=== PATIENT | female | born 1995 ===

== ENCOUNTER 2023-01-24 10:18 | Inpatient (IN) | payer BC ==
[2023-01-24] MEDS ORDERED: Diphenoxylate HCl/Atropine Tablet PO PRN ×2 (10:22)
[2023-01-24] MEDS ORDERED: Acetaminophen 500 MG TAB PO PRN (10:22)
[2023-01-24] MEDS ORDERED: hydrALAZINE 20 MG/ML VIAL SLOW IVP PRN ×2 (10:22→22:25)
[2023-01-24] MEDS ORDERED: fentaNYL 50 mcg/mL 1 mL Vial SLOW IVP PRN (10:22)
[2023-01-24] MEDS ORDERED: HYDROcodone/Acetaminophen 5/325 mg Tablet PO PRN ×4 (10:22→22:25)
[2023-01-24] MEDS ORDERED: Carboprost 250 MCG/ML AMP IM PRN (10:22)
[2023-01-24] MEDS ORDERED: Methylergonovine 0.2 MG/ML VIAL IM PRN ×2 (10:22→22:25)
[2023-01-24] MEDS ORDERED: Docusate 100 MG CAP PO PRN (10:22)
[2023-01-24] MEDS ORDERED: Ondansetron PF 4 MG/2 ML Vial IVP PRN ×3 (10:22→22:25)
[2023-01-24] MEDS ORDERED: Ibuprofen 800 MG TAB PO PRN (10:22)
[2023-01-24] MEDS ORDERED: Promethazine HCl 25 MG/ML VIAL IM PRN ×2 (10:22→15:39)
[2023-01-24] MEDS ORDERED: Lidocaine 1% (PF) 30 ML VIAL SC PRN (10:22)
[2023-01-24] MEDS ORDERED: Misoprostol 200 MCG TAB PR PRN (10:22)
[2023-01-24] MEDS ORDERED: Lactated Ringer's 1,000 ML IV SCH (10:30)
[2023-01-24] MEDS ORDERED: Penicillin G Potassium 5 MILL.UNITS in Sodium Chloride 0.9% 100 ML IVPB SCH (10:30)
[2023-01-24] MEDS ORDERED: Oxytocin 30 units/NS 500 ML 500 ML IV SCH ×4 (10:30→22:30)
[2023-01-24 12:20] LABS: Hematocrit 36.8 % (34.9-44.5); Hemoglobin 12.7 g/dL (12.0-15.5); Mean Corpuscular HGB CONC 34.5 g/dL (32.0-36.0); Mean Corpuscular Hemoglobin 32.2 pg (27.0-33.0); Mean Corpuscular Volume 93.2 fl (81.6-98.3); Mean Platelet Volume 12.9 fl (7.4-10.4); Platelet Count 165 10x3/uL (150-450); RBC Distribution Width 13.2 % (11.5-14.5); Red Blood Cell (RBC) Count 3.95 10x6/uL (3.90-5.03); White Blood Cell (WBC) Count 12.1 10x3/uL (3.5-10.5)
[2023-01-24 12:56] LABS: Syphilis Antibody Nonreactive (Nonreactive); Syphilis Antibody Index 0.04 S/CO (<1.00 Non-Reactive)
[2023-01-24 12:57] LABS: HIV (1/2) Antibody/Antigen Non-Reactive (NonReactive); HIV 1/2 INDEX 0.07 S/CO (<1.00)
[2023-01-24 12:58] LABS: HBSAg Index 0.17 S/CO (0-0.99); Hep B Surf Ag - L&D Non-Reactive S/CO (NonReactive)
[2023-01-24] MEDS ORDERED: fentaNYL/Ropivacaine Epidural 100 ML ONE (14:16)
[2023-01-24 15:20] VITALS: BMI 35.9
[2023-01-24] MEDS ORDERED: ePHEDrine Sulfate 50 MG/10 ML VIAL SLOW IVP PRN (15:39)
[2023-01-24] MEDS ORDERED: Naloxone HCl 0.4 mg/ml Vial IVP PRN ×2 (15:39)
[2023-01-24] MEDS ORDERED: Acetaminophen 325 MG TAB PO PRN (15:39)
[2023-01-24] MEDS ORDERED: Lactated Ringer's 500 ML IV PRN (15:39)
[2023-01-24] MEDS ORDERED: diphenhydrAMINE 50 MG/ML VIAL IVP PRN (15:39)
[2023-01-24] MEDS ORDERED: Moisturizing Cream (Eucerin) 113 GM JAR TOP PRN (15:39)
[2023-01-24] MEDS ORDERED: Communication Order-Pharmacy FS SCH (15:45)
[2023-01-24] MEDS: Penicillin G 2.5 MILL.units 2.5 MILL.UNITS in Premix 1 BAG IVPB SCH ×2 (16:53→20:55)
[2023-01-24] MEDS ORDERED: Famotidine/PF 20 mg/2ml Vial SLOW IVP SCH (21:00)
[2023-01-24] MEDS ORDERED: Boostrix 0.5 ML (Tdap) VIAL (>/=7 yrs of age) IM ONE (22:25)
[2023-01-24] MEDS ORDERED: Milk Of Magnesia 30 ML UDCUP PO PRN (22:25)
[2023-01-24] MEDS ORDERED: Misoprostol 200 MCG TAB VAG PRN (22:25)
[2023-01-24] MEDS ORDERED: diphenhydrAMINE 25 MG CAP PO PRN (22:25)
[2023-01-24] MEDS ORDERED: Lanolin Ointment 7 GM TUBE TOP PRN (22:25)
[2023-01-24] MEDS ORDERED: Bisacodyl 10 MG SUPP PR PRN (22:25)
[2023-01-24] MEDS ORDERED: Benzocaine-Menthol 82.5 ML CAN TOP PRN (22:25)
[2023-01-24] MEDS ORDERED: Zolpidem Tartrate 5 MG TAB PO PRN (22:25)
[2023-01-24] MEDS ORDERED: Preparation H Ointment 28 GM TUBE PR PRN (22:25)
[2023-01-25] MEDS: Penicillin G 2.5 MILL.units 2.5 MILL.UNITS in Premix 1 BAG IVPB SCH (01:46)
[2023-01-25 04:07] LABS: Hematocrit 30.9 % (34.9-44.5); Hemoglobin 10.9 g/dL (12.0-15.5); Mean Corpuscular HGB CONC 35.3 g/dL (32.0-36.0); Mean Corpuscular Hemoglobin 33.1 pg (27.0-33.0); Mean Corpuscular Volume 93.9 fl (81.6-98.3); Mean Platelet Volume 12.9 fl (7.4-10.4); Platelet Count 159 10x3/uL (150-450); RBC Distribution Width 13.3 % (11.5-14.5); Red Blood Cell (RBC) Count 3.29 10x6/uL (3.90-5.03); White Blood Cell (WBC) Count 22.2 10x3/uL (3.5-10.5)
[2023-01-25] MEDS ORDERED: Witch Hazel-Glycerin 1 EACH JAR TOP PRN (05:26)
[2023-01-25] MEDS: Ibuprofen 800 MG TAB PO SCH ×3 (05:36→21:20)
[2023-01-25] MEDS: Ferrous Sulfate 325 MG TAB PO SCH ×2 (07:39→17:53)
[2023-01-25] MEDS: Docusate 100 MG CAP PO SCH ×2 (08:50→21:19)
[2023-01-25] MEDS: Prenatal Vitamin 1 TAB PO SCH (08:50)
[2023-01-25] MEDS: Acetaminophen 500 MG TAB PO PRN (18:01)
[2023-01-26] MEDS: Ibuprofen 800 MG TAB PO SCH (06:05)
[2023-01-26 07:54] VITALS: BP 133/66; TEMP 98.2
[2023-01-26] MEDS: Ferrous Sulfate 325 MG TAB PO SCH (08:40)
[2023-01-26] MEDS: Docusate 100 MG CAP PO SCH (08:52)
[2023-01-26] MEDS: Prenatal Vitamin 1 TAB PO SCH (08:52)
[2023-01-26] MEDS: Acetaminophen 500 MG TAB PO PRN (08:52)
== END 2023-01-26 13:00 | disposition home or self-care (01) | DRG 806 ==
LOC: CSHLD 10:18 → CSHPP 01-25 00:10
PROVIDERS: ADMIT Obstetrics & Gynecology; ATTEND Obstetrics & Gynecology
PROC: 10E0XZZ Delivery of Products of Conception, External Approach (ICD-10-PCS; principal; 2023-01-24)
PROC: 0W8NXZZ Division of Female Perineum, External Approach (ICD-10-PCS; 2023-01-24)
PROC: 10H07YZ Insertion of Other Device into Products of Conception, Via Natural or Artificial Opening (ICD-10-PCS; 2023-01-24)
DX: O42.02 Full-term premature rupture of membranes, onset of labor within 24 hours of rupture (principal); O98.52 Other viral diseases complicating childbirth; Z37.0 Single live birth; Z3A.37 37 weeks gestation of pregnancy; O99.824 Streptococcus B carrier state complicating childbirth; B00.9 Herpesviral infection, unspecified; Z90.89 Acquired absence of other organs
CPT/HCPCS: 36415; 51702; 85027; 86780; 86850; 86900; 86901; 87340; 87389; 99285; J2405; J2540; J3490; S0028